=== PATIENT | female | born 1990 | race Caucasian/White ===

== ENCOUNTER 2017-06-09 12:04 | Observation (INO) | payer SELFPAY ==
[~2017-06-09] VITALS: Ht 152.4 cm; Wt 65.8 kg
[2017-06-09] MEDS ORDERED: SODIUM CHLORIDE 0.9% 1,000 ML IV ONE (12:47)
[2017-06-09 13:24] LABS: BASOPHILS % 0.8 % (0.0-2.0); EOSINOPHILS % 1.5 % (0.0-5.0); HEMATOCRIT. 37.7 % (36.0-48.0); HEMOGLOBIN. 12.3 g/dL (12.0-16.0); LYMPHOCYTES % 22.4 % (20.0-50.0); MEAN CORPUSCULAR HEMOGLOBIN 24.7 pg (28.0-32.0); MEAN CORPUSCULAR VOLUME 75.8 fL (81.0-99.0); MEAN PLATELET VOLUME 7.1 fl (7.4-10.4); MONOCYTES % 8.8 % (2.0-8.0); NEUTROPHILS % 66.5 % (40.0-76.0); PLATELET 268 x1000/uL (130-400); RED BLOOD CELL COUNT 4.98 mill/uL (4.2-5.4); RED CELL DISTRIBUTION WIDTH 15.2 % (11.6-14.6)
[2017-06-09 13:37] LABS: PARTIAL THROMBOPLASTIN TIME 26.1 sec (23.4-31.0); PROTHROMBIN TIME 10.7 sec (9.4-11.6)
[2017-06-09 13:47] LABS: CARBON DIOXIDE 25 mEq/L (21-32); CHLORIDE 104 mEq/L (98-107)
[2017-06-09 14:19] LABS: B-HCG QUANTITATIVE 337110 mIU/mL (<3)
[2017-06-09] MEDS ORDERED: LIDOCAINE HCL 1% 20ML VIAL (Pyxis) INJ ONE ×2 (20:12→20:19)
[2017-06-09] MEDS ORDERED: SODIUM BICARBONATE 4% (2.4MEQ) 5ML VIAL IV ONE (20:12)
[2017-06-09] MEDS ORDERED: PROPOFOL 200MG/20ML VIAL IV ONE (20:19)
[2017-06-09] MEDS ORDERED: FENTANYL CITRATE/PF 50MCG/ML 2ML VIAL ONE (20:20)
[2017-06-09] MEDS ORDERED: METOCLOPRAMIDE HCL 10MG/2ML VIAL ONE (20:22)
[2017-06-09] MEDS ORDERED: DEXAMETHASONE 4MG/ML 1ML VIAL ONE (20:22)
[2017-06-09] MEDS ORDERED: ONDANSETRON HCL 4MG/2ML VIAL ONE (20:22)
[2017-06-09] MEDS ORDERED: OXYTOCIN 10 UNITS/ML 1ML ONE (21:03)
[2017-06-09] MEDS ORDERED: MORPHINE SULFATE 4 MG/ML CPJ (NOT FOR IM USE) IV PRN (21:10)
[2017-06-09] MEDS ORDERED: ONDANSETRON HCL 4MG/2ML VIAL IV PRN (21:30)
[2017-06-09] MEDS ORDERED: KETOROLAC 30MG/ML VIAL IV NR (21:30)
[2017-06-09] MEDS ORDERED: METHYLERGONOVINE MALEATE 0.2 MG/ML IM NR (21:30)
[2017-06-09] MEDS ORDERED: DEXT 5%/LR + PITOCIN 20UNITS/L 1,000 ML IV SCH (22:00)
[2017-06-09 23:02] VITALS: BP 96/41
[2017-06-10] VITALS: BP 96/41
[2017-06-10] MEDS: DEXT 5%/LR + PITOCIN 20UNITS/L 1,000 ML IV SCH ×2 (03:44→12:48)
[2017-06-10 04:00] VITALS: BP 101/52
[2017-06-10 08:00] VITALS: BP 95/47
[2017-06-10 12:00] VITALS: BP 111/53
[2017-06-10 15:28] VITALS: BP 107/62
== END 2017-06-10 16:00 | disposition home or self-care (01) ==
LOC: ER 13:54 → INTOOBSV 15:45 → 6EST 15:45 → ENRESERV 19:17
PROVIDERS: ADMIT Specialist; ATTEND Specialist
DX: O08.9 Unspecified complication following an ectopic and molar pregnancy (principal); O02.0 Blighted ovum and nonhydatidiform mole; O20.9 Hemorrhage in early pregnancy, unspecified; Z3A.12 12 weeks gestation of pregnancy
CPT/HCPCS: 36415; 59812; 76830; 76856; 80048; 84702; 85025; 85610; 85730; 86850; 86900; 86901; 88305; 96365; 96366; 99285; G0378; J1100; J1885; J2210; J2270; J2405; J2765; J3010; J3490; J7030; 96360; J2590; J2704

== ENCOUNTER 2022-06-07 03:29 | Emergency (ER) | payer MEDICAID ==
[~2022-06-07] VITALS: Ht 167.6 cm; Wt 73.0 kg
[2022-06-07] MEDS ORDERED: KETOROLAC 30MG/ML VIAL IV STA (07:12)
[2022-06-07 08:27] LABS: BASOPHILS % 0.6 % (0.0-2.0); EOSINOPHILS % 0.9 % (0.0-5.0); HEMOGLOBIN. 12.5 g/dL (12.0-16.0); LYMPHOCYTES % 33.1 % (20.0-50.0); MEAN CORPUSCULAR HEMOGLOBIN 24.5 pg (28.0-32.0); MEAN CORPUSCULAR VOLUME 74.8 fL (81.0-99.0); MEAN PLATELET VOLUME 7.1 fl (7.4-10.4); MONOCYTES % 4.3 % (2.0-8.0); NEUTROPHILS % 61.1 % (40.0-76.0); PLATELET 391 x1000/uL (130-400); RED BLOOD CELL COUNT 5.08 mill/uL (4.2-5.4); RED CELL DISTRIBUTION WIDTH 16.2 % (11.6-14.6)
[2022-06-07 08:28] LABS: CHLORIDE 107 mEq/L (98-107)
[2022-06-07] MEDS ORDERED: TOPUD PO (08:51)
[2022-06-07 09:00] VITALS: BP 110/65
== END 2022-06-07 09:40 | disposition home or self-care (01) ==
LOC: ER 03:29
DX: R07.89 Other chest pain (principal); Z90.49 Acquired absence of other specified parts of digestive tract; Z98.890 Other specified postprocedural states; Z88.8 Allergy status to other drugs, medicaments and biological substances
CPT/HCPCS: 36415; 71045; 80053; 83880; 84484; 85025; 85379; 93005; 99285